=== PATIENT | male | born 1985 | race Caucasian/White ===

== ENCOUNTER 2022-11-04 17:54 | Emergency (ER) | payer MEDICAID ==
[~2022-11-04] VITALS: Ht 175.3 cm; Wt 95.3 kg
[2022-11-04 19:22] VITALS: BP_SYST 115
[2022-11-04] MEDS ORDERED: MAG-AL HYDROX/SIMETH 30 ML UDC PO ONE (20:00)
[2022-11-04] MEDS ORDERED: DICYCLOMINE HCL 10 MG CAPSULE PO ONE (20:00)
[2022-11-04] MEDS ORDERED: ONDANSETRON 4 MG ODT TAB PO ONE (20:00)
--- NOTE | 2022-11-04 20:00 | NUR ---
ATTEMPTED TO ASSES PATIENT. PT NOT FOUND IN WAINTING.
[2022-11-04 21:47] LABS: BASOPHILS # (AUTO) 0.1 K/uL (0.0-0.2); EOSINOPHILS # (AUTO) 0.4 K/uL (0.0-0.4); EOSINOPHILS % (AUTO) 6.5 % (0.0-4.0); HEMATOCRIT 42.7 % (36-54); HEMOGLOBIN 14.4 g/dL (14.0-18.0); LYMPHOCYTES # (AUTO) 2.4 K/uL (1.0-5.5); LYMPHOCYTES % (AUTO) 36.8 % (20.5-51.5); MEAN CORPUSCULAR HEMOGLOBIN 30 pg (27-31); MEAN CORPUSCULAR HGB CONC 34 % (32-36); MEAN CORPUSCULAR VOLUME 88 fL (79.0-98.0); MONOCYTES # (AUTO) 0.5 K/uL (0.0-1.0); MONOCYTES % (AUTO) 7.8 % (1.7-9.3); NEUTROPHILS # (AUTO) 3.2 K/uL (1.8-7.7); NEUTROPHILS % (AUTO) 47.9 % (40.0-70.0); PLATELET COUNT (AUTO) 199 K/uL (130-430); RED BLOOD CELL COUNT(AUTO) 4.86 MIL/uL (4.2-6.2); WHITE BLOOD COUNT (AUTO) 6.6 K/uL (4.8-10.8)
[2022-11-04] MEDS ORDERED: DICYCLOMINE HCL 10 MG/5 ML SOLUTION ONE (21:54)
--- NOTE | 2022-11-04 21:57 | NUR ---
CALLED PT TO MEDICATED AND PT NOT FOUND IN WAITING ROOM.
[2022-11-04] MEDS ORDERED: DICYCLOMINE HCL 10 MG/5 ML SOLUTION PO ONE (22:00)
[2022-11-04 22:01] LABS: CALCIUM 8.9 mg/dL (8.4-11.0); CREATININE 1.29 mg/dL (0.55-1.30)
[2022-11-04 22:05] LABS: ALBUMIN 3.8 g/dL (3.4-4.8); TOTAL BILIRUBIN 0.3 mg/dL (0.0-1.0)
[2022-11-04] MEDS ORDERED: DICY10CA13 PO (22:13)
[2022-11-04] MEDS ORDERED: OMEP40CA20 PO (22:13)
[2022-11-04] MEDS ORDERED: ONDA-8 TL (22:13)
--- NOTE | 2022-11-04 23:00 | NUR ---
PT LEFT WITHOUT DISCHARGE INSTRUCTIONS.
--- NOTE | 2022-11-04 23:00 | NUR ---
CALLED PT TO MEDICATE. PT NOT FOUND IN WAITIING ROOM.
== END 2022-11-04 23:00 | disposition home or self-care (01) ==
LOC: SED 17:54
DX: R10.13 Epigastric pain (principal); R11.0 Nausea; K59.00 Constipation, unspecified; Z79.899 Other long term (current) drug therapy
CPT/HCPCS: 36415; 76376; 80053; 83690; 85025; 99284; Q0162